=== PATIENT | female | born 1930 | race Caucasian/White ===

== ENCOUNTER → 2017-02-16 | Outpatient (CLI) | payer MEDICARE, OTHER ==
--- NOTE | 2017-02-16 17:11 | RADRPT ---
PROCEDURE: XR Left hip and pelvis. CLINICAL INDICATION: Left hip pain and pelvic pain. TECHNIQUE: 3 views. Frontal pelvis. Frontal and lateral left hip. COMPARISON: 02/09 20:13. FINDINGS: There is no fracture or dislocation. The soft tissues are normal. 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 The hips are unremarkable. There is no lytic or blastic lesion. There is no radiopaque foreign body. IMPRESSION: 1. Degenerative changes of the lower lumbar spine. 2. Otherwise unremarkable study. 3. No change from 02/09/2013. RPTAT: QQ .Brian Noyola MD, MD Date Time Electronically viewed and signed by .Brian Noyola MD, on 02/16/2017 17:11 .R/
== END | disposition home or self-care (01) ==
LOC: HKI 14:25
PROVIDERS: ATTEND Orthopaedic Surgery
DX: M25.561 Pain in right knee (principal); M25.562 Pain in left knee; M17.0 Bilateral primary osteoarthritis of knee; M70.62 Trochanteric bursitis, left hip; M70.61 Trochanteric bursitis, right hip
CPT/HCPCS: 20610; 73502; G0463; J7327